=== PATIENT | male | born 1950 | race African-American/Black ===

== ENCOUNTER 2019-03-12 22:03 | Emergency (ER) | payer MEDICARE, MEDICAID ==
[~2019-03-12] VITALS: Ht 180.3 cm; Wt 102.0 kg
[2019-03-13 00:15] VITALS: BP 139/91
== END 2019-03-13 00:30 | disposition home or self-care (01) ==
LOC: ER 22:48
DX: I10 Essential (primary) hypertension (principal); Z90.49 Acquired absence of other specified parts of digestive tract; Z98.890 Other specified postprocedural states; Z88.5 Allergy status to narcotic agent; Z88.8 Allergy status to other drugs, medicaments and biological substances; Z88.2 Allergy status to sulfonamides; R51 Headache
CPT/HCPCS: 99283